=== PATIENT | male | born 1955 | race Caucasian/White ===

== ENCOUNTER 2017-05-26 15:38 | Inpatient (IN) | payer MEDICARE, OTHER ==
[~2017-05-26] VITALS: Ht 177.8 cm; Wt 66.0 kg
[2017-05-26] MEDS ORDERED: SODIUM CHLORIDE 0.9% 1,000ML IVBOLUS ONE (17:00)
[2017-05-26 17:09] LABS: HEMATOCRIT 43.8 % (39.2-51.8); HEMOGLOBIN 15.1 g/dL (13.7-18.0)
[2017-05-26 17:22] LABS: ASPARTATE AMINO TRANSFERASE 100 U/L (15-37); BLOOD UREA NITROGEN 9 mg/dL (7-18)
[2017-05-26] MEDS ORDERED: SODIUM CHLORIDE FLUSH 10ML SYR IVF ONE (17:30)
[2017-05-26] MEDS ORDERED: MAGNESIUM SULFATE 1 GM, THIAMINE 100 MG, FOLIC ACID 1 MG, MVI ADULT 10 ML in SODIUM CHL... IV ONE (17:30)
[2017-05-26] MEDS ORDERED: LORazepam 2 MG/ML, 1ML IV PRN ×3 (18:30)
[2017-05-26] MEDS ORDERED: LORazepam 0.5MG TABLET PO PRN (18:30)
[2017-05-26] MEDS: NICOTINE 14MG/24 HR PATCH.TD24 TD SCH (18:30)
[2017-05-26] MEDS ORDERED: DOCUSATE 100 MG CAPSULE PO PRN (18:30)
[2017-05-26] MEDS ORDERED: LORazepam 1MG TABLET PO PRN (18:30)
[2017-05-26 20:30] VITALS: BP 120/84
[2017-05-26] MEDS: OXYcodone IR 5MG TABLET PO PRN ×2 (21:04→21:41)
[2017-05-26] MEDS: NS + 20MEQ KCL 1,000 ML IV SCH (21:05)
[2017-05-26 22:12] VITALS: BP 124/84
[2017-05-27] MEDS: OXYcodone IR 5MG TABLET PO PRN ×2 (01:38→19:52)
[2017-05-27 02:06] VITALS: BP 128/87
[2017-05-27] MEDS: HYDROmorphone 2 MG/ML, 1ML IVPush PRN ×2 (04:05→08:00)
[2017-05-27] MEDS: ONDANSETRON 2MG/ML, 2ML IVPush PRN (04:21)
[2017-05-27] MEDS ORDERED: LORazepam 1MG TABLET ONE (04:28)
[2017-05-27 05:41] LABS: ASPARTATE AMINO TRANSFERASE 104 U/L (15-37); BLOOD UREA NITROGEN 7 mg/dL (7-18)
[2017-05-27 05:46] LABS: HEMOGLOBIN 13.9 g/dL (13.7-18.0); WHITE BLOOD COUNT 9.1 x10^3/uL (3.4-10)
[2017-05-27 06:50] VITALS: BP 122/88
[2017-05-27] MEDS: MULTIVITAMIN 1 TABLET PO SCH (07:22)
[2017-05-27] MEDS: THIAMINE 100MG TABLET PO SCH (07:22)
[2017-05-27] MEDS: SENNA/DOCUSATE TABLET PO SCH (07:22)
[2017-05-27] MEDS: FOLIC ACID 1 MG TABLET PO SCH (07:22)
[2017-05-27 08:55] LABS: DAU SCREEN DISCLAIMER
[2017-05-27] MEDS ORDERED: SODIUM CHLORIDE 0.9% 100 ML ONE (09:09)
[2017-05-27] MEDS ORDERED: VANCOMYCIN 1,000 MG ONE (09:09)
[2017-05-27] MEDS ORDERED: VASOPRESSIN 20 UNIT/ML, 1ML ONE (10:37)
[2017-05-27] MEDS ORDERED: FENTANYL PF 100 MCG/2ML ONE ×2 (10:53→12:33)
[2017-05-27] MEDS ORDERED: PROPOFOL 10 MG/ML, 20ML ONE (10:57)
[2017-05-27] MEDS ORDERED: GLYCOPYRROLATE 0.4 MG/2 ML, 2ML ONE (11:00)
[2017-05-27] MEDS ORDERED: CEFAZOLIN 1,000 MG ONE ×2 (11:16)
[2017-05-27] MEDS ORDERED: DEXAMETHASONE 4 MG/ML, 1ML ONE (11:37)
[2017-05-27] MEDS ORDERED: ONDANSETRON 2MG/ML, 2ML ONE (11:37)
[2017-05-27] MEDS ORDERED: MEPERIDINE/PF 25MG/0.5ML IVPush PRN (12:00)
[2017-05-27] MEDS ORDERED: LORazepam 2 MG/ML, 1ML IVPush PRN (12:00)
[2017-05-27] MEDS ORDERED: ACETAMINOPHEN 325 MG TABLET PO PRN (12:00)
[2017-05-27] MEDS ORDERED: METOCLOPRAMIDE 5 MG/ML, 2ML IV PRN (12:00)
[2017-05-27] MEDS ORDERED: ONDANSETRON 2MG/ML, 2ML IVPush PRN (12:00)
[2017-05-27] MEDS ORDERED: METOPROLOL 1 MG/ML, 5ML IV PRN (12:00)
[2017-05-27] MEDS ORDERED: HYDROcodone/APAP 7.5-325MG/15ML UDC PO PRN (12:00)
[2017-05-27] MEDS ORDERED: OXYcodone 5 MG/5 ML ORAL.SOL UDC PO PRN (12:00)
[2017-05-27] MEDS ORDERED: HYDROmorphone 1 MG/ML, 1ML IV PRN (12:00)
[2017-05-27] MEDS ORDERED: MIDAZOLAM 1 MG/ML, 2ML IV PRN (12:00)
[2017-05-27] MEDS ORDERED: hydrALAzine 20 MG/ML, 1ML IV PRN (12:00)
[2017-05-27] MEDS ORDERED: DIAZEPAM 5 MG/ML, 2ML IVPush PRN (12:00)
[2017-05-27] MEDS ORDERED: EPHEDRINE 50 MG/ML, 1ML IVPush PRN (12:00)
[2017-05-27] MEDS ORDERED: ALBUTEROL SULFATE 2.5 MG/3 ML NPPB PRN (12:00)
[2017-05-27] MEDS ORDERED: ROCURONIUM 10 MG/ML,10ML ONE (12:06)
[2017-05-27] MEDS ORDERED: SUCCINYLCHOLINE 20 MG/ML, 10ML ONE (12:06)
[2017-05-27] MEDS ORDERED: ALBUTEROL SULFATE 2.5 MG/3 ML ONE (12:26)
[2017-05-27] MEDS ORDERED: morphine SULFATE 10 MG/ML, 1ML IV PRN (12:30)
[2017-05-27] MEDS ORDERED: OXYcodone 5 MG/5 ML ORAL.SOL UDC ONE (12:33)
[2017-05-27] MEDS ORDERED: ACETAMINOPHEN 650 MG/20.3 ML UDC ONE (12:33)
[2017-05-27] MEDS ORDERED: LABETALOL 5MG/ML, 20ML ONE (12:33)
[2017-05-27] MEDS: FENTANYL PF 100 MCG/2ML IV PRN ×2 (12:37→12:45)
[2017-05-27] MEDS: LABETALOL 5MG/ML, 20ML IV PRN ×2 (12:50→13:05)
[2017-05-27 13:30] VITALS: BP 147/91
[2017-05-27] MEDS: NS + 20MEQ KCL 1,000 ML IV SCH (14:18)
[2017-05-27] MEDS ORDERED: LEVO50TA5 PO (14:53)
[2017-05-27] MEDS ORDERED: hydrALAzine 20 MG/ML, 1ML IVPush PRN (15:00)
[2017-05-27] MEDS ORDERED: LABETALOL 5MG/ML, 20ML IVPush PRN (15:00)
[2017-05-27] MEDS: NICOTINE 14MG/24 HR PATCH.TD24 TD SCH (17:27)
[2017-05-27 18:45] VITALS: BP 131/92
[2017-05-27] MEDS: CEFAZOLIN PMX 2GM/50ML 50 ML IVPB SCH (19:47)
[2017-05-27] MEDS: LORazepam 1MG TABLET PO PRN (21:31)
[2017-05-28] VITALS: BP_SYST 107; BP_SYST 124; BP_DIAS 68; BP_DIAS 76
[2017-05-28] MEDS: OXYcodone IR 5MG TABLET PO PRN ×6 (02:00→22:09)
[2017-05-28 03:27] VITALS: BP 106/76
[2017-05-28] MEDS: CEFAZOLIN PMX 2GM/50ML 50 ML IVPB SCH (03:29)
[2017-05-28 04:55] LABS: HEMATOCRIT 35.4 % (39.2-51.8); HEMOGLOBIN 12.4 g/dL (13.7-18.0); WHITE BLOOD COUNT 8.3 x10^3/uL (3.4-10)
[2017-05-28 05:04] LABS: BLOOD UREA NITROGEN 9 mg/dL (7-18)
[2017-05-28] MEDS: ENOXAPARIN 40 MG/0.4 ML SQ SCH (06:17)
[2017-05-28] MEDS: LEVOTHYROXINE 50 MCG TABLET PO SCH (06:17)
[2017-05-28 06:44] VITALS: BP 135/83
[2017-05-28] MEDS: MULTIVITAMIN 1 TABLET PO SCH (08:38)
[2017-05-28] MEDS: SENNA/DOCUSATE TABLET PO SCH (08:38)
[2017-05-28] MEDS: FOLIC ACID 1 MG TABLET PO SCH (08:38)
[2017-05-28] MEDS: THIAMINE 100MG TABLET PO SCH (08:38)
[2017-05-28] MEDS: NICOTINE 14MG/24 HR PATCH.TD24 TD SCH (12:36)
[2017-05-28 14:02] VITALS: BP 132/79
[2017-05-28 19:05] VITALS: BP 102/68
[2017-05-28] MEDS: ONDANSETRON 2MG/ML, 2ML IVPush PRN (19:11)
[2017-05-28] MEDS: LORazepam 1MG TABLET PO PRN (22:08)
[2017-05-29 01:50] VITALS: BP 105/73
[2017-05-29] MEDS: LEVOTHYROXINE 50 MCG TABLET PO SCH (05:25)
[2017-05-29] MEDS: ENOXAPARIN 40 MG/0.4 ML SQ SCH (05:25)
[2017-05-29] MEDS: OXYcodone IR 5MG TABLET PO PRN (05:25)
[2017-05-29 07:33] VITALS: BP 118/41
[2017-05-29] MEDS: MULTIVITAMIN 1 TABLET PO SCH (08:16)
[2017-05-29] MEDS: SENNA/DOCUSATE TABLET PO SCH (08:16)
[2017-05-29] MEDS: THIAMINE 100MG TABLET PO SCH (08:16)
[2017-05-29] MEDS: FOLIC ACID 1 MG TABLET PO SCH (08:16)
[2017-05-29 12:56] VITALS: BP 118/78
[2017-05-29] MEDS: POLYETHYLENE GLYCOL 17 GM PACKET PO PRN (15:45)
[2017-05-29] MEDS: NICOTINE 14MG/24 HR PATCH.TD24 TD SCH (17:04)
[2017-05-29 19:20] VITALS: BP 97/66
[2017-05-30] MEDS: OXYcodone IR 5MG TABLET PO PRN ×4 (00:37→23:32)
[2017-05-30 03:13] VITALS: BP 104/68
[2017-05-30] MEDS: LEVOTHYROXINE 50 MCG TABLET PO SCH (05:55)
[2017-05-30] MEDS: ENOXAPARIN 40 MG/0.4 ML SQ SCH (05:55)
[2017-05-30 06:45] VITALS: BP 92/68
[2017-05-30] MEDS: SENNA/DOCUSATE TABLET PO SCH (08:31)
[2017-05-30] MEDS: MULTIVITAMIN 1 TABLET PO SCH (08:31)
[2017-05-30] MEDS: THIAMINE 100MG TABLET PO SCH (08:31)
[2017-05-30] MEDS: FOLIC ACID 1 MG TABLET PO SCH (08:31)
[2017-05-30 13:26] VITALS: BP 100/59
[2017-05-30] MEDS: NICOTINE 14MG/24 HR PATCH.TD24 TD SCH (18:17)
[2017-05-30] MEDS: POLYETHYLENE GLYCOL 17 GM PACKET PO PRN (18:20)
[2017-05-30 19:14] VITALS: BP 145/88
[2017-05-31 01:57] VITALS: BP 112/73
[2017-05-31] MEDS: ENOXAPARIN 40 MG/0.4 ML SQ SCH (06:05)
[2017-05-31] MEDS: LEVOTHYROXINE 50 MCG TABLET PO SCH (06:05)
[2017-05-31] MEDS: OXYcodone IR 5MG TABLET PO PRN ×2 (06:14→12:03)
[2017-05-31 06:50] VITALS: BP 123/79
[2017-05-31] MEDS: MULTIVITAMIN 1 TABLET PO SCH (08:19)
[2017-05-31] MEDS: THIAMINE 100MG TABLET PO SCH (08:19)
[2017-05-31] MEDS: SENNA/DOCUSATE TABLET PO SCH (08:20)
[2017-05-31] MEDS: FOLIC ACID 1 MG TABLET PO SCH (08:20)
[2017-05-31] MEDS ORDERED: THIA100T6 PO (09:11)
[2017-05-31] MEDS ORDERED: MULT1TAB60 PO (09:11)
[2017-05-31] MEDS ORDERED: NICO-486 TD (09:11)
[2017-05-31] MEDS ORDERED: LORA-446 PO (09:11)
[2017-05-31] MEDS ORDERED: FOLI-17 PO (09:11)
[2017-05-31] MEDS ORDERED: OXYC5TAB3 PO (09:11)
[2017-05-31 11:27] VITALS: BP 121/71
== END 2017-05-31 12:10 | DRG 469 ==
LOC: ED 16:41 → EDIP 18:04 → SUATTDRO 18:28 → 4NOR 20:05
PROVIDERS: ADMIT Family Medicine; ATTEND Family Medicine
PROC: 0SRS0J9 Replacement of Left Hip Joint, Femoral Surface with Synthetic Substitute, Cemented, Open Approach (ICD-10-PCS; principal; 2017-05-26)
DX: S72.002A Fracture of unspecified part of neck of left femur, initial encounter for closed fracture (principal); G92 Toxic encephalopathy; K70.9 Alcoholic liver disease, unspecified; K75.9 Inflammatory liver disease, unspecified; F10.239 Alcohol dependence with withdrawal, unspecified; D64.9 Anemia, unspecified; E03.9 Hypothyroidism, unspecified; F12.90 Cannabis use, unspecified, uncomplicated; W18.30XA Fall on same level, unspecified, initial encounter; F17.200 Nicotine dependence, unspecified, uncomplicated; I10 Essential (primary) hypertension; Y93.89 Activity, other specified; Y92.89 Other specified places as the place of occurrence of the external cause; Z79.899 Other long term (current) drug therapy; F10.229 Alcohol dependence with intoxication, unspecified
CPT/HCPCS: 36415; 71010; 72170; 80048; 80053; 80307; 82040; 83735; 84443; 85025; 85610; 93005; 94640; 96365; 96366; J0690; J1100; J1170; J1650; J2405; J2704; J3010; J3370; J3411; J3475; J3480; J7613; C1776; G0479; J0330; J0360; J2060; J2270; J7030